=== PATIENT | male | born 1990 | race Caucasian/White ===

== ENCOUNTER 2017-05-02 13:10 | Emergency (ER) | payer OTHER ==
[2017-05-02 13:16] VITALS: TEMP 97.6
[2017-05-02] MEDS ORDERED: SODIUM CHLORIDE 0.9% 1,000 ML IV STA (13:33)
[2017-05-02 13:48] LABS: Basophils % (A) 0 %; CH 30.9; CHCM 33.9; Eosinophils # (A) 0.4 k/uL (0-0.7); Eosinophils % (A) 5 %; HCT 45.6 % (39.0-53.0); HDW 2.09; HGB 15.2 gm/dL (13.0-17.5); Luc # (Auto) 0.15; Luc % (Auto) 2; Lymphocytes # (A) 1.7 k/uL (1.0-4.8); Lymphocytes % (A) 23 %; MCH 30.5 pg (25.0-35.0); MCHC 33.3 g/dL (31.0-37.0); MCV 91.4 fL (80.0-100.0); Mean Platelet Volume 6.7; Monocytes # (A) 0.5 k/uL (0-1.0); Monocytes % (A) 7 %; Neutrophils # (A) 4.5 k/uL (1.3-7.7); Neutrophils % (A) 63 %; RBC 4.98 m/uL (4.30-5.90); RDW 13.3 % (11.5-15.5); WBC 7.2 k/uL (3.8-10.6); WBC (Perox) 6.96
[2017-05-02 13:54] LABS: ALT 40 U/L (21-72); AST 26 U/L (17-59); Alkaline Phosphatase 83 U/L (38-126); Anion Gap 14 mmol/L; Blood Urea Nitrogen 13 mg/dL (9-20); Calcium 10.2 mg/dL (8.4-10.2); Carbon Dioxide 27 mmol/L (22-30); Chloride 102 mmol/L (98-107); Glucose 109 mg/dL (74-99); Non-African American GFR(MDRD) >60 (>60 ml/min/1.73 sqM); Potassium 4.4 mmol/L (3.5-5.1); Sodium 143 mmol/L (137-145); Total Bilirubin 1.1 mg/dL (0.2-1.3); Total Protein 7.7 g/dL (6.3-8.2)
--- NOTE | 2017-05-02 14:01 | XR ---
EXAMINATION TYPE: XR chest 2V DATE OF EXAM: 05/02/2017 HISTORY: r/o pneumothorax. REFERENCE: NONE. FINDINGS: The lungs are clear. Pleural spaces are clear. Heart size is within normal limits. I do not see evidence of pneumothorax. IMPRESSION: NORMAL CHEST.
[2017-05-02 14:46] VITALS: RESP 18
--- NOTE | 2017-05-02 15:45 | ED ---
Dizziness HPI - General Chief Complaint: Dizziness Stated Complaint: abnormal EKG-sent by [facility] Time Seen by Provider: 05/02/17 13:22 Source: patient Mode of arrival: ambulatory Limitations: no limitations - History of Present Illness Initial Comments: 26 years old male sent in from from urgent care he had a chest pain since 9 PM yesterday chest pain lasted less than a minute it was after the dinner no nausea no vomiting no cold sweats no fever no chills no cough. He has been dizzy off and on. He quit smoking recently denies any street drugs he had a couple of years most part no symptoms of TIA or CVA at this point - Related Data Home Medications Medication Instructions Recorded Confirmed No Known Home Medications [No 05/02/17 05/02/17 Known Home Medications] Allergies Allergy/AdvReac Type Severity Reaction Status Date / Time No Known Allergies Allergy Verified 05/02/17 13:49 Review of Systems ROS Statement: Those systems with pertinent positive or pertinent negative responses have been documented in the HPI. ROS Other: All systems not noted in ROS Statement are negative. Past Medical History Past Medical History: No Reported History History of Any Multi-Drug Resistant Organisms: None Reported Past Surgical History: No Surgical Hx Reported Past Psychological History: No Psychological Hx Reported Smoking Status: Former smoker Past Alcohol Use History: Occasional Past Drug Use History: None Reported General Exam - General Exam Comments Initial Comments: General: The patient is awake and alert, in no distress, and does not appear acutely ill. He is bit anxious Skin: Skin is warm and dry and no rashes or lesions are noted. Eye: Pupils are equal, round and reactive to light, extra-ocular movements are intact; there is normal conjunctiva bilaterally. Ears, nose, mouth and throat: There are moist mucous membranes and no oral lesions. Neck: The neck is supple, there is no tenderness or JVD. Cardiovascular: There is a regular rate and rhythm. No murmur, rub or gallop is appreciated. Respiratory: To auscultation bilateral, no wheezing no rhonchi no distress respiratory terry noticed Gastrointestinal: Soft, non-distended, non-tender abdomen without masses or organomegaly noted. There is no rebound or guarding present. Bowel sounds are unremarkable. Back: There is no tenderness to palpation in the midline. There is no obvious deformity. Musculoskeletal: Normal ROM, no tenderness, There is no pedal edema. There is no calf tenderness or swelling. No cords were appreciated. Neurological: CN II-XII intact, Cranial nerves III through XII are intact. There are no obvious motor or sensory deficits. Coordination appears grossly intact. Speech is normal. Psychiatric: Cooperative, appropriate mood & affect, normal judgment. Limitations: no limitations Course Vital Signs 05/02/17 05/02/17 05/02/17 13:11 14:00 14:46 Temperature 97.6 F Pulse Rate 79 67 71 Pulse Rate [ Sitting] Pulse Rate [ Standing] Pulse Rate [ Supine] Respiratory 14 18 18 Rate Blood Pressure 144/93 158/75 152/74 Blood Pressure [Sitting] Blood Pressure [Standing] Blood Pressure [Supine] O2 Sat by Pulse 98 98 98 Oximetry 05/02/17 05/02/17 15:49 16:15 Temperature Pulse Rate 60 Pulse Rate [ 67 Sitting] Pulse Rate [ 69 Standing] Pulse Rate [ 61 Supine] Respiratory 18 18 Rate Blood Pressure 146/81 Blood Pressure 150/73 [Sitting] Blood Pressure 160/85 [Standing] Blood Pressure 147/70 [Supine] O2 Sat by Pulse 98 Oximetry He was reassessed at 1540, he has no chest pain, all his imaging as well as blood work was discussed with him which included CBC, CMP, troponin, EKG, chest x-ray his chest pain but he complains about dizziness considering his ongoing dizziness 2 years no history of any brain pathology and the family will require and will continue also to the orthostatic blood pressure check - Reevaluation(s) Reevaluation #2: 05/02/17 16:[address] was reviewed at 1630, is negative patient was reassured and he was advised to call [facility] Thursday first thing in the morning and COARSE STRESS TEST ON HE AGREES WITH Reevaluation #3: 05/02/17 16:33 Orthostatics were checked over the normal range EKG Findings - EKG Comments: EKG Findings:: EKG is normal sinus rhythm with sinus arrhythmia and incomplete right bundle branch block and ventricular rate is 67 UT interval is 142 QRS duration is 1 of QT/QTc is 396/418 and 50 mL EKG shows some right bundle branch block and some T-wave inversion in lead [address] elevation or ST depression noticed this EKG Medical Decision Making - Lab Data Result diagrams: 05/02/17 13:30 05/02/17 13:30 Lab Results 05/02/17 05/02/17 05/02/17 Range/Units 13:30 13:30 13:30 WBC 7.2 (3.8-10.6) k/uL RBC 4.98 (4.30-5.90) m/uL Hgb 15.2 (13.0-17.5) gm/dL Hct 45.6 (39.0-53.0) % MCV 91.4 (80.0-100.0) fL MCH 30.5 (25.0-35.0) pg MCHC 33.3 (31.0-37.0) g/dL RDW 13.3 (11.5-15.5) % Plt Count 284 (150-450) k/uL Neutrophils % 63 % Lymphocytes % 23 % Monocytes % 7 % Eosinophils % 5 % Basophils % 0 % Neutrophils # 4.5 (1.3-7.7) k/uL Lymphocytes # 1.7 (1.0-4.8) k/uL Monocytes # 0.5 (0-1.0) k/uL Eosinophils # 0.4 (0-0.7) k/uL Basophils # 0.0 (0-0.2) k/uL Sodium 143 (137-145) mmol/L Potassium 4.4 (3.5-5.1) mmol/L Chloride 102 (98-107) mmol/L Carbon Dioxide 27 (22-30) mmol/L Anion Gap 14 mmol/L BUN 13 (9-20) mg/dL Creatinine 0.90 (0.66-1.25) mg/dL Est GFR (MDRD) Af Amer >60 (>60 ml/min/1.73 sqM) Est GFR (MDRD) Non-Af >60 (>60 ml/min/1.73 sqM) Glucose 109 H (74-99) mg/dL Calcium 10.2 (8.4-10.2) mg/dL Total Bilirubin 1.1 (0.2-1.3) mg/dL AST 26 (17-59) U/L ALT 40 (21-72) U/L Alkaline Phosphatase 83 (38-126) U/L Troponin I <0.012 (0.000-0.034) ng/mL Total Protein 7.7 (6.3-8.2) g/dL Albumin 5.0 (3.5-5.0) g/dL Disposition Clinical Impression: Chest pain, Dizziness Disposition: HOME SELF-CARE Condition: Good Instructions: Dizziness (ED) Referrals: Kendrick Oscar DO [Primary Care Provider] - 1-2 days Golden Olvera MD [STAFF PHYSICIAN] - 1-2 days
--- NOTE | 2017-05-02 16:04 | CT ---
EXAMINATION TYPE: CT brain wo con DATE OF EXAM: 05/02/2017 COMPARISON: NONE HISTORY: Patient complains of dizziness today. CT DLP: 966.3 mGycm. Automated Exposure Control for Dose Reduction was Utilized. TECHNIQUE: CT scan of the head is performed without contrast. FINDINGS: Ventricles and sulci appear normal. There is no mass effect nor midline shift. There is no sign of intracranial hemorrhage. Calvarium is intact. There is mucosal thickening in the sphenoid and ethmoid sinuses. I see no bone destruction. IMPRESSION: Normal CT scan of the brain. Sinusitis..
[2017-05-02 16:47] VITALS: BP 145/78; PULSE 70
== END 2017-05-02 16:47 | disposition home or self-care (01) ==
LOC: EC 13:10
DX: R07.9 Chest pain, unspecified (principal); R42 Dizziness and giddiness; Z87.891 Personal history of nicotine dependence
CPT/HCPCS: 36415; 70450; 71020; 80053; 84484; 85025; 93005; 96360; 96361; 99284

== ENCOUNTER 2017-05-09 10:29 | Emergency (ER) | payer OTHER ==
[2017-05-09 11:32] LABS: Basophils % (A) 0 %; CHCM 34.8; Eosinophils # (A) 0.3 k/uL (0-0.7); Eosinophils % (A) 4 %; HCT 40.3 % (39.0-53.0); HDW 2.25; HGB 14.5 gm/dL (13.0-17.5); Luc # (Auto) 0.18; Luc % (Auto) 2; Lymphocytes # (A) 1.1 k/uL (1.0-4.8); Lymphocytes % (A) 15 %; MCH 31.2 pg (25.0-35.0); MCV 86.5 fL (80.0-100.0); Mean Platelet Volume 6.7; Monocytes # (A) 0.5 k/uL (0-1.0); Monocytes % (A) 7 %; Neutrophils # (A) 5.2 k/uL (1.3-7.7); Neutrophils % (A) 71 %; RBC 4.66 m/uL (4.30-5.90); RDW 12.9 % (11.5-15.5); WBC 7.3 k/uL (3.8-10.6); WBC (Perox) 7.82
[2017-05-09 11:54] LABS: Anion Gap 11 mmol/L; Blood Urea Nitrogen 12 mg/dL (9-20); Calcium 9.8 mg/dL (8.4-10.2); Carbon Dioxide 25 mmol/L (22-30); Chloride 104 mmol/L (98-107); Glucose 85 mg/dL (74-99); Non-African American GFR(MDRD) >60 (>60 ml/min/1.73 sqM); Sodium 140 mmol/L (137-145)
[2017-05-09 11:59] LABS: Potassium 4.8 mmol/L (3.5-5.1)
--- NOTE | 2017-05-09 12:44 | ED ---
General Adult HPI - General Chief complaint: Recheck/Abnormal Lab/Rx Stated complaint: dizzy/shakey Time Seen by Provider: 05/09/17 10:49 Source: patient, RN notes reviewed Mode of arrival: ambulatory Limitations: no limitations - History of Present Illness Initial comments: 26-year-old male presenting with a history of lightheadedness, and generalized shaking. Patient also noted some tingling in his face and toes which is currently resolved. He had these symptoms approximately 2 weeks ago and the happened again this morning. Patient states he was on his way to work when symptoms can. He had eaten to oranges and a candy bar for breakfast. Had a generalized tremor primarily in the hands. He has no significant past medical history not on any chronic medications, currently is taking amoxicillin for right ear effusion. No surgical history. No change in appetite prior to this. No focal complaints of weakness. No headache. No nausea vomiting. No fever or chills. - Related Data Home Medications Medication Instructions Recorded Confirmed No Known Home Medications [No 05/02/17 05/09/17 Known Home Medications] Allergies Allergy/AdvReac Type Severity Reaction Status Date / Time No Known Allergies Allergy Verified 05/09/17 10:40 Review of Systems ROS Statement: Those systems with pertinent positive or pertinent negative responses have been documented in the HPI. ROS Other: All systems not noted in ROS Statement are negative. Constitutional: Reports: fever, chills ENT: Reports: ear pain, throat pain Gastrointestinal: Reports: nausea, vomiting Neurological: Reports: headache, weakness Past Medical History Past Medical History: No Reported History History of Any Multi-Drug Resistant Organisms: None Reported Past Surgical History: No Surgical Hx Reported Past Psychological History: No Psychological Hx Reported Smoking Status: Former smoker Past Alcohol Use History: Occasional Past Drug Use History: None Reported General Exam Limitations: no limitations General appearance: alert, in no apparent distress Head exam: Present: atraumatic, normocephalic Eye exam: Present: normal appearance, PERRL, EOMI. Absent: scleral icterus, nystagmus ENT exam: Present: normal exam, normal oropharynx, mucous membranes moist Neck exam: Present: normal inspection, full ROM. Absent: meningismus Respiratory exam: Present: normal lung sounds bilaterally. Absent: respiratory distress Cardiovascular Exam: Present: regular rate, normal rhythm GI/Abdominal exam: Present: soft, distended. Absent: tenderness, guarding, rebound Extremities exam: Present: normal inspection, normal capillary refill. Absent: pedal edema Neurological exam: Present: alert, oriented X3, CN II-XII intact, other (No ataxia). Absent: motor sensory deficit Psychiatric exam: Present: normal affect, normal mood. Absent: depressed, anxious Skin exam: Present: warm, dry. Absent: rash Course Vital Signs 05/09/17 10:36 Temperature 98.9 F Pulse Rate 77 Respiratory 20 Rate Blood Pressure 138/76 O2 Sat by Pulse 99 Oximetry Medical Decision Making - Medical Decision Making 26-year-old male presenting with lightheadedness, and shaking. Patient has had this episode one other time approximately 2 weeks ago. He also noticed some facial numbness and tingling which is currently resolved. Patient does admit eating to oranges and a candy bar for breakfast. Symptoms began approximately 30 minutes to 1 hour after eating breakfast. History is consistent with hypoglycemic episode. Basic laboratory studies obtained in the emergency department are unremarkable. Serum glucose is 85 which is on the low side of normal. Lites are within normal limits. Exam is unremarkable including complete neurologic examination. Patient is instructed to eat a more substantial breakfast with left shoulder, both fat and protein. He will follow-up with his primary care physician regarding these symptoms. - Lab Data Result diagrams: 05/09/17 11:20 05/09/17 11:20 Lab Results 05/09/17 05/09/17 Range/Units 11:20 11:20 WBC 7.3 (3.8-10.6) k/uL RBC 4.66 (4.30-5.90) m/uL Hgb 14.5 (13.0-17.5) gm/dL Hct 40.3 (39.0-53.0) % MCV 86.5 (80.0-100.0) fL MCH 31.2 (25.0-35.0) pg MCHC 36.0 (31.0-37.0) g/dL RDW 12.9 (11.5-15.5) % Plt Count 271 (150-450) k/uL Neutrophils % 71 % Lymphocytes % 15 % Monocytes % 7 % Eosinophils % 4 % Basophils % 0 % Neutrophils # 5.2 (1.3-7.7) k/uL Lymphocytes # 1.1 (1.0-4.8) k/uL Monocytes # 0.5 (0-1.0) k/uL Eosinophils # 0.3 (0-0.7) k/uL Basophils # 0.0 (0-0.2) k/uL Sodium 140 (137-145) mmol/L Potassium 4.8 (3.5-5.1) mmol/L Chloride 104 (98-107) mmol/L Carbon Dioxide 25 (22-30) mmol/L Anion Gap 11 mmol/L BUN 12 (9-20) mg/dL Creatinine 0.76 (0.66-1.25) mg/dL Est GFR (MDRD) Af Amer >60 (>60 ml/min/1.73 sqM) Est GFR (MDRD) Non-Af >60 (>60 ml/min/1.73 sqM) Glucose 85 (74-99) mg/dL Calcium 9.8 (8.4-10.2) mg/dL Disposition Clinical Impression: Hypoglycemia Disposition: HOME SELF-CARE Condition: Good Additional Instructions: Patient is encouraged to follow up with primary care physician in the next several days. Referrals: Kendrick Oscar DO [Primary Care Provider] - 1-2 days Time of Disposition: 12:43
[2017-05-09 13:05] VITALS: BP 150/82; PULSE 66; RESP 16; TEMP 96.9
== END 2017-05-09 13:06 | disposition home or self-care (01) ==
LOC: EC 10:29
DX: E16.2 Hypoglycemia, unspecified (principal); Z87.891 Personal history of nicotine dependence
CPT/HCPCS: 36415; 80048; 85025; 99284

== ENCOUNTER → 2019-11-12 | Outpatient (CLI) | payer OTHER ==
[2019-11-12 10:41] LABS: Basophils % (A) 0 %; Eosinophils # (A) 0.1 k/uL (0-0.7); Eosinophils % (A) 1 %; HCT 46.4 % (39.0-53.0); HGB 15.4 gm/dL (13.0-17.5); Lymphocytes # (A) 1.8 k/uL (1.0-4.8); Lymphocytes % (A) 30 %; MCH 29.1 pg (25.0-35.0); MCHC 33.2 g/dL (31.0-37.0); MCV 87.7 fL (80.0-100.0); Mean Platelet Volume 7.2; Monocytes # (A) 0.4 k/uL (0-1.0); Monocytes % (A) 6 %; Neutrophils # (A) 3.6 k/uL (1.3-7.7); Neutrophils % (A) 60 %; Platelet Count 300 k/uL (150-450); RBC 5.29 m/uL (4.30-5.90); RDW 13.3 % (11.5-15.5)
[2019-11-12 16:58] LABS: Albumin 5.1 g/dL (3.80-4.90); Albumin/Globulin Ratio 2.43 (1.60-3.17); Anion Gap 9.3 mmol/L (4.00-12.00); Carbon Dioxide 27.7 mmol/L (21.6-31.8); Chol/HDL Ratio 3.98; Globulin 2.1 g/dL (1.6-3.3); LDL Cholesterol,Calculated 157.2 mg/dL (0.0-131.0); Non-African American GFR(CKD) 102.7 (60.0-200.0); Potassium 4.3 mmol/L (3.5-5.5); Total Bilirubin 0.8 mg/dL (0.3-1.2); Total Protein 7.2 g/dL (6.2-8.2); VLDL Calculation 24.8 mg/dL (5.00-40.00)
== END | disposition home or self-care (01) ==
LOC: LABWHC1 10:00
PROVIDERS: ATTEND Nurse Practitioner Family
DX: Z13.228 Encounter for screening for other metabolic disorders (principal); Z13.220 Encounter for screening for lipoid disorders; I10 Essential (primary) hypertension; R53.83 Other fatigue
CPT/HCPCS: 36415; 80053; 80061; 82306; 84443; 85025

== ENCOUNTER → 2020-12-04 | Outpatient (CLI) | payer OTHER ==
--- NOTE | 2020-12-04 13:15 | US ---
EXAMINATION TYPE: US pelvic complete DATE OF EXAM: 12/04/2020 COMPARISON: NONE CLINICAL HISTORY: LUQ pain R10.12. Patient's order was for pelvic US, but patient stated has random L UQ anterior abd pain TECHNIQUE: Transpelvic US Bladder: appears wnl, bilateral ureteral jets are seen; post void bladder volume is wnl = 9.3ml. At patient's area of LUQ abd pain: US findings are wnl for Spleen and Left kidney. Patient pointed to anterior LUQ for area of pain: ribs and bowel are imaged. IMPRESSION: No distinct abnormality is seen.
--- NOTE | 2020-12-04 15:37 | XR ---
2 view abdomen HISTORY: Left upper quadrant pain, R 10.12 2 views the abdomen on 3 images No comparisons Probable vascular calcifications noted in the left hemipelvis. Lung bases are clear. Heart size may b e borderline but may be accentuated by technique. There is a slight spinal curvature. No evident pneu moperitoneum or bowel obstruction. IMPRESSION: Nonspecific bowel gas pattern.
== END | disposition home or self-care (01) ==
LOC: RADUSWWP 12:22
PROVIDERS: ATTEND Family Medicine
DX: R10.12 Left upper quadrant pain (principal)
CPT/HCPCS: 74019; 76857

== ENCOUNTER → 2020-12-19 | Outpatient (CLI) | payer OTHER ==
--- NOTE | 2020-12-20 08:02 | CT ---
EXAMINATION TYPE: CT abdomen wo/w con DATE OF EXAM: 12/19/2020 COMPARISON: None HISTORY: Lt side abdomen pain x several weeks CT DLP: 1251 mGycm CONTRAST: CT scan of the abdomen is performed with Oral Contrast and with IV Contrast, patient injected with 10 0 mL of Isovue 300. FINDINGS: LUNG BASES-: No visible nodule. No infiltrate. LIVER/GB: No calcified gallstones. No space occupying hepatic lesion. Biliary tree is of normal ca liber. PANCREAS: No inflammation. No distinct mass. SPLEEN: No splenic enlargement. No lesion seen. ADRENALS: No nodule. No thickening. KIDNEYS/BLADDER: No hydronephrosis. No nephrolithiasis. No distinct renal mass. Urinary bladder g rossly unremarkable. BOWEL: Visualized bowel loops are of normal caliber. LYMPH NODES: No greater than 1cm abdominal or pelvic lymph nodes are appreciated. AORTA: No significant abnormality. OSSEOUS STRUCTURES: No significant abnormality is seen. OTHER: No significant additional abnormality is seen. IMPRESSION: 1. No distinct abnormality visualized within the [id number].
== END | disposition home or self-care (01) ==
LOC: RADCTMAIN 16:54
PROVIDERS: ATTEND Family Medicine
DX: R10.9 Unspecified abdominal pain (principal)
CPT/HCPCS: 74170; Q9967

== ENCOUNTER → 2021-04-12 | Outpatient (CLI) | payer OTHER ==
--- NOTE | 2021-04-13 05:50 | MR ---
EXAMINATION TYPE: MR iac wo/w con DATE OF EXAM: 04/12/2021 COMPARISON: None HISTORY: Vertigo and light headed. CONTRAST: Standard multiplanar, multisequence MRI departmental protocol utilizing 7.5 mL intravenous Gadavist g adolinium contrast. Ventricles and sulci appear normal. There is no mass effect nor midline shift. There is no sign of in tracranial hemorrhage. Diffusion images show no evidence of an acute infarct. Brainstem is intact. Cerebellum appears normal. Fowler-white matter structures have fairly normal signa l pattern. There is no evidence of edema. Corpus callosum appears normal. The internal auditory canals appear normal. The acoustic nerve and vestibular nerves appear normal. T here is no evidence of cerebellopontine angle mass. There is no pathologic enhancement. There is mucu s retention cysts in the right side of the sphenoid sinus. IMPRESSION: Negative MR scan of the brain. No posterior fossa abnormality. Right side sphenoid sinus mucus retention cysts.
== END | disposition home or self-care (01) ==
LOC: RADMRIMAIN 16:01
PROVIDERS: ATTEND Otolaryngology
DX: R42 Dizziness and giddiness (principal); J32.3 Chronic sphenoidal sinusitis
CPT/HCPCS: 83970; 70553; 36415; A9585

== ENCOUNTER → 2021-07-01 | Outpatient (CLI) | payer OTHER ==
[2021-07-01 16:11] LABS: Appearance,Urine Clear (Clear); Bilirubin,Urine Negative (Negative); Blood,Urine Negative (Negative); Color,Urine Light Yellow; Glucose,Urine (UA) Negative (Negative); Ketones,Urine Negative (Negative); Leukocyte Esterase,Urine Negative (Negative); Nitrite,Urine Negative (Negative); Protein,Urine Negative (Negative); Specific Gravity,Urine 1.005 (1.001-1.035); Urobilinogen,Urine <2.0 mg/dL (<2.0)
[2021-07-02 05:04] LABS: African American GFR (CKD) 117.4 (60.0-200.0); Albumin 5.1 g/dL (3.80-4.90); Albumin/Globulin Ratio 2.04 (1.60-3.17); Anion Gap 12.9 mmol/L (4.00-12.00); Calcium 9.6 mg/dL (8.7-10.3); Carbon Dioxide 23.1 mmol/L (21.6-31.8); Globulin 2.5 g/dL (1.6-3.3); Non-African American GFR(CKD) 101.3 (60.0-200.0); Potassium 4.2 mmol/L (3.5-5.5); Total Bilirubin 0.7 mg/dL (0.3-1.2); Total Protein 7.6 g/dL (6.2-8.2)
== END | disposition home or self-care (01) ==
LOC: LABWHC1 15:38
PROVIDERS: ATTEND Family Medicine
DX: I10 Essential (primary) hypertension (principal)
CPT/HCPCS: 36415; 80053; 81003; 82088; 82533; 84244

== ENCOUNTER → 2021-07-10 | Outpatient (CLI) | payer OTHER | END | disposition home or self-care (01) | LOC: LABWHC1 15:54 | PROVIDERS: ATTEND Family Medicine | DX: R79.9 Abnormal finding of blood chemistry, unspecified (principal) | CPT/HCPCS: 36415; 82088; 84244 ==

== ENCOUNTER → 2022-04-14 | Outpatient (CLI) | payer OTHER ==
--- NOTE | 2022-04-15 00:10 | CT ---
EXAMINATION TYPE: CT angio abdomen DATE OF EXAM: 04/14/2022 INDICATION: h/o dizziness. Hypertension. CT DLP: 271 mGy.cm Automated Exposure Control for Dose Reduction was Utilized. TECHNIQUE AND CONTRAST: CT scan of the abdomen is performed with IV Contrast, as per abdominal aortic angiogram protocol. Pat ient injected with 100 mL of Isovue 370. MIP and 3-D reconstruction images were generated on an [employer] workstation and reviewed. COMPARISON: CT dated 12/19/2020 FINDINGS: Normal caliber and enhancement of the abdominal aorta as well as major abdominal arteries. Single maty al artery supplying each kidney demonstrating normal caliber and enhancement without significant sten osis, occlusion, dissection or aneurysm. Unremarkable liver, gallbladder, spleen, pancreas, adrenals and kidneys. Unremarkable nondistended st omach, duodenum and visualized portion of the small and large bowel. Subcentimeter mesenteric lymph n odes, nonspecific. No suspicious abdominal lymphadenopathy or ascites. Few millimetric nodules are seen at the lateral aspect of the right lung base measuring up to 3 mm, r equiring no further follow-up if low risk patient. If high-risk patient, optional follow-up CT scan c an be considered in 12 months. No aggressive bone lesion. IMPRESSION: Unremarkable CTA of the abdominal aorta and renal arteries. Unremarkable kidneys. Incidental findings as described above.
== END | disposition home or self-care (01) ==
LOC: RADCTMAIN 16:47
PROVIDERS: ATTEND Internal Medicine
DX: I10 Essential (primary) hypertension (principal)
CPT/HCPCS: 74175; Q9967

== ENCOUNTER → 2022-05-14 | Outpatient (CLI) | payer OTHER ==
--- NOTE | 2022-05-15 06:20 | CT ---
EXAMINATION TYPE: CT chest wo con DATE OF EXAM: 05/14/2022 COMPARISON: CTA abdomen April 14, 2022 HISTORY: LUNG NODULE CT DLP: 275.9 mGycm. Automated Exposure Control for Dose Reduction was Utilized. TECHNIQUE: CT scan of the thorax is performed without IV contrast. FINDINGS: LUNGS: Some dependent atelectasis bilateral lower lobes. Some scattered micronodules in the right dorene g base, largest laterally measures 5 x 3 mm series 4 image 42. No significant greater than 5 mm pulmo nary nodules or masses. No suspicious focal consolidation. There is no pleural effusion or pneumotho rax seen. The tracheobronchial tree is patent. MEDIASTINUM: Lack of IV contrast is noted to limit evaluation for mediastinal and especially hilar ad enopathy. There are no definitive greater than 1 cm mediastinal lymph nodes. No cardiomegaly or per icardial effusion is seen. OTHER: No additional significant abnormality is seen. IMPRESSION: Confirmation of small nodules right lung base. No significant greater than 5 mm pulmonary nodules. Nodules presumed benign in patient under 30 years of age.
== END | disposition home or self-care (01) ==
LOC: RADCTMAIN 17:19
PROVIDERS: ATTEND Internal Medicine
DX: R91.8 Other nonspecific abnormal finding of lung field (principal)
CPT/HCPCS: 71250

== ENCOUNTER → 2025-06-09 | Outpatient (CLI) | payer BC ==
--- NOTE | 2025-06-09 08:48 | XR ---
EXAMINATION TYPE: XR chest 2V DATE OF EXAM: 06/09/2025 8:44 AM COMPARISON: Chest radiographs from 05/02/2017 TECHNIQUE: XR chest 2V Frontal and lateral views of the chest. CLINICAL INDICATION:Male, 34 years old with history of R05.9 COUGH; FINDINGS: Lungs/Pleura: There is no evidence of pleural effusion, focal consolidation, or pneumothorax. Pulmonary vascularity: Unremarkable. Heart/mediastinum: Cardiomediastinal silhouette is unremarkable. Musculoskeletal: No acute osseous pathology. IMPRESSION: No acute cardiopulmonary disease/process. [facility], , 06/09/2025 8:46 AM
[2025-06-09 15:29] LABS: Basophils # (A) 0.02 X 10*3/uL (0.00-0.10); Basophils % (A) 0.3 %; Eosinophils # (A) 0.08 X 10*3/uL (0.04-0.35); Eosinophils % (A) 1.2 %; HCT 44.1 % (39.6-50.0); HGB 14.5 g/dL (13.0-17.0); Immature Grans, Automated 0.30 %; Lymphocytes # (A) 2.26 X 10*3/uL (0.90-5.00); Lymphocytes % (A) 34.5 %; MCH 29.2 pg (27.0-32.0); MCHC 32.9 g/dL (32.0-37.0); MCV 88.7 FL (80.0-97.0); Monocytes # (A) 0.67 X 10*3/uL (0.20-1.00); Monocytes % (A) 10.2 %; NRBC Per 100 WBC 0 X 10*3/uL (0.00-0.01); Neutrophils # (A) 3.50 X 10*3/uL (1.80-7.70); Neutrophils % (A) 53.5 %; Platelet Count 336 X 10*3/uL (140-440); RBC 4.97 X 10*6/uL (4.40-5.60); RDW 13.2 % (11.5-14.5); WBC 6.55 X 10*3/uL (4.50-10.00)
[2025-06-09 15:52] LABS: Cholesterol 216.00 mg/dL (0.00-200.00); HDL Cholesterol 48.40 mg/dL (40.00-60.00); Triglycerides 92.50 mg/dL (0.00-149.00)
[2025-06-09 15:53] LABS: ALT 46 U/L (10-49); AST 30 U/L (14-35); Albumin 4.8 g/dL (3.8-4.9); Albumin/Globulin Ratio 1.92 Ratio (1.60-3.17); Alkaline Phosphatase 99 U/L (41-126); Anion Gap 11.10 mmol/L (4.00-12.00); BUN/Creat Ratio 16.70 Ratio (12.00-20.00); Blood Urea Nitrogen 16.7 mg/dL (9.0-27.0); Calcium 9.8 mg/dL (8.7-10.3); Carbon Dioxide 24.9 mmol/L (21.6-31.8); Chloride 104 mmol/L (96-109); Globulin 2.5 g/dL (1.6-3.3); Glucose 98 mg/dL (70-110); LDL Cholesterol,Calculated 149.1 mg/dL (0.0-131.0); Magnesium 2.1 mg/dL (1.5-2.4); Potassium 5.0 mmol/L (3.5-5.5); Sodium 140 mmol/L (135-145); Total Protein 7.3 g/dL (6.2-8.2); VLDL Calculation 18.50 mg/dL (5.00-40.00)
== END | disposition home or self-care (01) ==
LOC: LABWHC1 08:21
PROVIDERS: ATTEND Internal Medicine
DX: I10 Essential (primary) hypertension (principal); E55.9 Vitamin D deficiency, unspecified; R05.9 Cough, unspecified
CPT/HCPCS: 36415; 71046; 80053; 80061; 82306; 83735; 84443; 85025